=== PATIENT | male | born 1950 | race Caucasian/White ===

== ENCOUNTER 2020-03-09 22:13 | Observation (INO) | payer MEDICARE, BC ==
--- NOTE | 2020-03-09 22:53 | EDM.PDOC ---
ED HPI GENERAL MEDICAL PROBLEM - General Chief Complaint: General Stated Complaint: [facility] Time Seen by Provider: 03/09/20 22:23 Source of Information: Reports: Patient History Limitations: Reports: No Limitations - History of Present Illness INITIAL COMMENTS - FREE TEXT/NARRATIVE: Mr. Stewart is a pleasant 62-year-old gentleman with a past medical history significant for morbid obesity, CHF and chronic bilateral lower extremity venous insufficiency, who is now brought to the ED by EMS for left flank pain and bilateral lower extremity pruritus. He states that he has had both of these symptoms for the past few weeks. He states that he was admitted to the [facility] this past 03/05/2020, and discharged home earlier today. He states that while there, a Doppler ultrasound of his left lower extremity was performed, along with a CT scan of his chest and abdomen, and that no abnormalities were found. He states that he was discharged home with a prescription for a single antibiotic, whose name he does not recall, along with a steroid cream that he is supposed to apply to his legs. He states that no pain medications were prescribed. The patient states that he has a chronic dyspnea on exertion and orthopnea. Other than the symptoms, however, the patient denies recent fever, chills, sore throat, ear pain, nasal or sinus congestion, cough, dyspnea at rest, chest pain , palpitations, nausea, vomiting, constipation, diarrhea, abdominal pain, urinary symptoms, recent weight gain or weight loss, recent bloody bowel movements or black bowel movements, recent joint aches, headaches, or rashes. Here in the ED, the patient's initial BP is found to be elevated at 157/55, otherwise, he is hemodynamically stable, afebrile, saturating at 90% on room air. I explained to the patient that I will review the paperwork from the [facility], to see if they omitted any pertinent tests, but that I do not think it would be bray to simply repeat tests here that had just been done. The patient agreed. Paperwork from [facility] is coming across the fax machine at this time. I will review it, then determine what tests, if any, are necessary tonight. Reviewing the patient's chart from the [facility], I see that the patient initially presented with progressive dyspnea and swelling in his lower feet over the previous 3 weeks. He had also noticed redness to his left lower extremity since that day. He acknowledged weight gain, and that his shoes had become too tight. He acknowledged that he ate a high salt intake and drank up to 1 gallon of water per day. An ECG demonstrated a normal sinus rhythm with a right bundle branch block, but no acute changes. His BNP and portable chest x-ray were normal/unremarkable. A d-dimer was elevated, but a subsequent CT angiogram of his chest was negative for PE, and a Doppler ultrasound of his left lower extremity was negative for DVT. A CT of his abdomen and pelvis with contrast was performed for reasons unclear, finding calcified gallstones, but no acute abnormalities. The patient was thought to have cellulitis of his left leg, treated with cefazolin while in the hospital, with significant improvement. He was prescribed cephalexin 750 mg po BID x 7 days at discharge. He was also prescribed hydrocortisone, 1 application topically BID. There is also a note that the patient was found to be chronically hypoxemic, and that home oxygen, 2L continuously, would be arranged for. The patient's PCP is Dr. Magdiel White, in [place]. Left Flank Pain Score (Numeric/FACES): 5 - Related Data Allergies Allergy/AdvReac Type Severity Reaction Status Date / Time codeine Allergy Severe Nausea Verified 03/09/20 22:25 Home Meds: Home Meds Aspirin [Lo-Dose Aspirin EC] 81 mg PO DAILY 03/09/20 [History] Calcium Carbonate [Calcium] 1,000 mg PO DAILY 03/09/20 [History] Cholecalciferol (Vitamin D3) [Vitamin D3] 1 tab PO DAILY 03/09/20 [History] Furosemide 20 mg PO DAILY 03/09/20 [History] Magnesium Oxide [Magnesium] 400 mg PO DAILY 03/09/20 [History] Potassium Gluconate [Potassium] 99 mg PO DAILY 03/09/20 [History] Zinc 15 mg PO DAILY 03/09/20 [History] atorvaSTATin [Lipitor] 20 mg PO DAILY 03/09/20 [History] lisinopriL [Lisinopril] 2.5 mg PO DAILY 03/09/20 [History] Past Medical History HEENT History: Reports: Impaired Vision Cardiovascular History: Reports: Heart Failure (right), High Cholesterol, Hypertension Gastrointestinal History: Reports: GERD (untreated) Musculoskeletal History: Reports: Arthritis Psychiatric History: Reports: Anxiety (untreated), Depression (untreated) Endocrine/Metabolic History: Reports: Obesity/BMI 30+, Other (See Below) ( Prediabetes) - Past Surgical History HEENT Surgical History: Reports: Eye Surgery (Right eye laser + surgery), Oral Surgery (wisdom teeth extraction) Musculoskeletal Surgical History: Reports: Arthroscopic Knee (right, x 2), Hip Replacement (right), Knee Replacement Social & Family History - Tobacco Use Smoking Status *Q: Former Smoker Years of Tobacco use: 37 Packs/Tins Daily: 3 Month/Year Tobacco Last Used: Quit 2003 - Caffeine Use Caffeine Use: Reports: None - Alcohol Use Alcohol Use History: Yes Alcohol Use Frequency: Rarely - Recreational Drug Use Recreational Drug Use: No - Living Situation & Occupation Living situation: Reports: Single, Alone Occupation: Retired ED ROS GENERAL - Review of Systems Review Of Systems: Comprehensive ROS is negative, except as noted in HPI. ED EXAM, GENERAL - Physical Exam Exam: See Below Exam Limited By: No Limitations General Appearance: Alert, WD/WN, No Apparent Distress Eye Exam: Bilateral Eye: EOMI, Normal Inspection Ears: Normal External Exam, Hearing Grossly Normal Nose: Normal Inspection Throat/Mouth: Normal Inspection, Normal Lips, Normal Voice, No Airway Compromise Head: Atraumatic, Normocephalic Neck: Normal Inspection, Full Range of Motion Respiratory/Chest: No Respiratory Distress, Lungs Clear, Normal Breath Sounds, No Accessory Muscle Use, Decreased Breath Sounds. No: Crackles, Rhonchi, Wheezing, Stridor, Prolonged Expiration Cardiovascular: Normal Peripheral Pulses, Regular Rate, Rhythm, No Gallop, No JVD, No Murmur, No Rub Peripheral Pulses: 4+: Radial (L), Radial (R) GI/Abdominal: Normal Bowel Sounds, Soft, Non-Tender, No Organomegaly, No Distention, No Abnormal Bruit, No Mass (Male) Exam: Deferred Rectal (Males) Exam: Deferred Back Exam: Normal Inspection, Full Range of Motion. No: CVA Tenderness (L), CVA Tenderness (R) Extremities: Normal Capillary Refill, Other (3-4+ pitting pretibial edema bilaterally, with associated erythema and scabs, consistent with chronic venous stasis) Neurological: Alert, Oriented, Normal Cognition, No Motor/Sensory Deficits Psychiatric: Normal Affect Skin Exam: Warm, Dry, Intact, Normal Color, No Rash Course - Vital Signs Last Recorded V/S: Last Vital Signs Temp 37.1 C 03/09/20 22:19 Pulse 93 03/09/20 22:54 Resp 20 03/09/20 22:54 BP 165/113 H 03/09/20 22:54 Pulse Ox 92 L 03/09/20 22:54 - Re-Assessments/Exams Free Text/Narrative Re-Assessment/Exam: 03/09/20 23:11 As above, the patient appears to have had a thorough evaluation at the [facility], and I am not sure what, from an emergency standpoint, I can offer him, however, I did ask if he would be interested in being placed into observation so that he can be evaluated by the Hospitalist tomorrow. He said that he would. 03/09/20 23:[address] Flores at 23:12. She agreed to place the patient into observation. She asked that I write bridge orders that include Benadryl cream to his legs as needed. 03/09/20 23:46 Notified by Jazlyn SUAZO that the patient urinated about 400 mL, and a urine sample was collected. I do not see that a urinalysis was performed at [facility], therefore I have ordered a urinalysis, along with a post-void bladder scan. 03/10/20 00:19 Notified by Namita SUAZO that the patient's post void bladder scan was only 17 mL. His urinalysis is unremarkable. Departure - Departure Time of Disposition: 23:16 Disposition: Refer to Observation Condition: Good Clinical Impression: Left flank pain, Pruritus - Discharge Information *PRESCRIPTION DRUG MONITORING PROGRAM REVIEWED*: Not Applicable *COPY OF PRESCRIPTION DRUG MONITORING REPORT IN PATIENT ZHANG: Not Applicable Sepsis Event Note (ED) - Evaluation Sepsis Screening Result: No Definite Risk - Focused Exam Vital Signs: Vital Signs Temp Pulse Resp BP Pulse Ox 03/09/20 22:54 93 20 165/113 H 92 L 03/09/20 22:19 37.1 C 18 157/55 H 90 L
[2020-03-10] MEDS ORDERED: diphenhydrAMINE/Zinc Acetate 1% Crm 28.3 GM Tube TOP PRN (01:27)
--- NOTE | 2020-03-10 08:59 | PCM.HP.2 ---
H&P History of Present Illness - General Date of Service: 03/10/20 Admit Problem/Dx: Admission Diagnosis/Problem Admission Diagnosis/Problem Flank pain - History of Present Illness Initial Comments - Free Text/Narative: This is a 70-year-old male with past medical history of heart failure with brought into the emergency department via EMS for worsening abdominal pain. As per patient he was admitted and [facility] from March 05 and discharged on March 09 for worsening lower extremity edema and cellulitis as well as shortness of breath. During that admission patient was found to have acute exacerbation of heart failure due to noncompliance. He was also diagnosed with left leg cellulitis and started on Keflex to complete 7 days. Patient states that he has been having chronic itching that worsening during this recent admission. As per documentation from previous admission patient was admitted for a heart failure exacerbation. Was found to have an elevated d-dimer on admission for which she was worked up for a pulmonary embolus and lower extremity DVT both of which were ruled out. He was found to have nocturnal hypoxia with pulse oximetry that dropped down to the 70s for which he was discharged on oxygen therapy. Abdominal CT with incidental findings of cholelithiasis and left lower pole 6 mm nephrolithiasis without hydronephrosis. After discharge patient went home and started experiencing severe abdominal pain without any specific localization, graded at an 8 out of 10, nonradiating, did not try any medications, no alleviating factors, worsening with movement. Of note he also states he has not had a bowel movement since 03/06. Left Flank Pain Score (Numeric/FACES): 5 - Related Data Allergies/Adverse Reactions: Allergies Allergy/AdvReac Type Severity Reaction Status Date / Time codeine Allergy Severe Nausea Verified 03/10/20 04:55 Home Medications: Home Meds Aspirin [Lo-Dose Aspirin EC] 81 mg PO DAILY 03/09/20 [History] Calcium Carbonate [Calcium] 1,000 mg PO DAILY 03/09/20 [History] Cholecalciferol (Vitamin D3) [Vitamin D3] 1 tab PO DAILY 03/09/20 [History] Furosemide 40 mg PO DAILY 03/09/20 [History] Magnesium Oxide [Magnesium] 400 mg PO DAILY 03/09/20 [History] Potassium Gluconate [Potassium] 99 mg PO DAILY 03/09/20 [History] Zinc 15 mg PO DAILY 03/09/20 [History] atorvaSTATin [Lipitor] 20 mg PO DAILY 03/09/20 [History] lisinopriL [Lisinopril] 2.5 mg PO DAILY 03/09/20 [History] Multivitamin [Multivitamins] 1 cap PO DAILY 03/10/20 [History] Past Medical History HEENT History: Reports: Impaired Vision Cardiovascular History: Reports: Heart Failure (right), High Cholesterol, Hypertension Respiratory History: Reports: SOB Gastrointestinal History: Reports: GERD (untreated) Musculoskeletal History: Reports: Arthritis Psychiatric History: Reports: Anxiety (untreated), Depression (untreated) Endocrine/Metabolic History: Reports: Obesity/BMI 30+, Other (See Below) ( Prediabetes) - Infectious Disease History Infectious Disease History: Reports: Influenza, Measles - Past Surgical History HEENT Surgical History: Reports: Eye Surgery (Right eye laser + surgery), Oral Surgery (wisdom teeth extraction) Musculoskeletal Surgical History: Reports: Arthroscopic Knee (right, x 2), Hip Replacement (right), Knee Replacement Social & Family History - Family History Family Medical History: Noncontributory - Tobacco Use Smoking Status *Q: Former Smoker Years of Tobacco use: 37 Packs/Tins Daily: 3 Used Tobacco, but Quit: No Month/Year Tobacco Last Used: Quit 2003 Second Hand Smoke Exposure: No - Caffeine Use Caffeine Use: Reports: None - Recreational Drug Use Recreational Drug Use: No - Living Situation & Occupation Living situation: Reports: Single, Alone Occupation: Retired H&P Review of Systems - Review of Systems: Review Of Systems: See Below General: Reports: Malaise, Decreased Appetite. Denies: Fever, Chills, Weakness , Fatigue, Night Sweats, Diaphoresis HEENT: Denies: Post Nasal Drip, Sinus Congestion, Sore Throat, Vertigo, Visual Changes Pulmonary: Reports: Shortness of Breath. Denies: Wheezing, Pleuritic Chest Pain , Cough, Sputum, Hemoptysis Cardiovascular: Reports: Edema. Denies: Dyspnea on Exertion, Orthopnea, PND, Lightheadedness, Syncope Gastrointestinal: Reports: Abdominal Pain, Anorexia, Constipation, Decreased Appetite, Distension. Denies: Diarrhea, Flatus, Nausea, Vomiting Genitourinary: Denies: Dysuria, Frequency, Burning, Pain, Urgency, Incontinence Musculoskeletal: Reports: Leg Pain. Denies: Neck Pain, Shoulder Pain, Arm Pain , Back Pain, Hand Pain, Foot Pain, Joint Pain, Joint Swelling, Muscle Pain, Muscle Stiffness Skin: Reports: Pallor, Pruritis, Rash, Erythema, Change in Color, Lesions. Denies: Cyanosis, Jaundice, Mottled, Diaphoresis, Dryness, Bruising Psychiatric: Denies: Confusion, Depression, Mood Lability, Anxiety, Agitation Neurological: Denies: Dizziness, Headache, Numbness, Paresthesia Hematologic/Lymphatic: Denies: Anemia, Easy Bleeding Exam - Exam Exam: See Below - Vital Signs Vital Signs: Last Vital Signs Temp 97.7 F 03/10/20 07:27 Pulse 78 03/10/20 07:27 Resp 20 03/10/20 07:27 BP 108/89 03/10/20 07:27 Pulse Ox 92 L 03/10/20 07:27 Weight: 183.478 kg - Exam Quality Assessment: Supplemental Oxygen, Other (confounded by body habitus) General: Alert, Oriented, Cooperative. No: Mild Distress HEENT: Conjunctiva Clear, EACs Clear, Mucosa Moist & [place] Neck: Supple Lungs: Decreased Breath Sounds. No: Crackles, Rales, Rhonchi, Rub, Stridor, Wheezing Cardiovascular: Regular Rate, Regular Rhythm. No: Systolic Murmur, Diastolic Murmur, Rubs, Gallop/S3, Gallop/S4 Extremities: Pedal Edema, Joint Swelling, Other (erythematous rash with stigmas of scratching on anterior surfaces) Sepsis Event Note - Evaluation Sepsis Screening Result: No Definite Risk - Problem List (1) Generalized abdominal pain SNOMED Code(s): 405192769 ICD Code: R10.84 - GENERALIZED ABDOMINAL PAIN Status: Acute Current Visit : Yes (2) Morbid obesity SNOMED Code(s): 193653521 ICD Code: E66.01 - MORBID (SEVERE) OBESITY DUE TO EXCESS CALORIES Status: Acute Current Visit: Yes (3) Nocturnal hypoxemia SNOMED Code(s): 987685753 ICD Code: G47.34 - IDIO SLEEP RELATED NONOBSTRUCTIVE ALVEOLAR HYPOVENTILATION Status: Acute Current Visit: Yes (4) Cellulitis SNOMED Code(s): 575493456 ICD Code: L03.90 - CELLULITIS, UNSPECIFIED Status: Acute Current Visit: Yes (5) Left nephrolithiasis SNOMED Code(s): 82892153 ICD Code: N20.0 - CALCULUS OF KIDNEY Status: Acute Current Visit: Yes (6) Cholelithiasis without cholecystitis SNOMED Code(s): 949019633 ICD Code: K80.20 - CALCULUS OF GALLBLADDER W/O CHOLECYSTITIS W/O OBSTRUCTION Status: Acute Current Visit: Yes (7) Pruritus SNOMED Code(s): 081686251 ICD Code: L29.9 - PRURITUS, UNSPECIFIED Status: Acute Current Visit: Yes (8) Hypertension SNOMED Code(s): 17815129 ICD Code: I10 - ESSENTIAL (PRIMARY) HYPERTENSION Status: Acute Current Visit: Yes (9) Constipation SNOMED Code(s): 51493711 ICD Code: K59.00 - CONSTIPATION, UNSPECIFIED Status: Acute Current Visit : Yes (10) KIERAN (obstructive sleep apnea) SNOMED Code(s): 43962846 ICD Code: G47.33 - OBSTRUCTIVE SLEEP APNEA (ADULT) (PEDIATRIC) Status: Acute Current Visit: Yes (11) 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 hypertension SNOMED Code(s): 047111142 ICD Code: I27.29 - OTHER SECONDARY PULMONARY HYPERTENSION; I50.810 - RIGHT HEART FAILURE, UNSPECIFIED Status: Acute Current Visit: Yes Problem List Initiated/Reviewed/Updated: Yes Assessment/Plan Comment:: Generalized abdominal pain due to constipation Incidental cholelithiasis and nephrolithiasis No bowel movement in 4 days patient Did describe pain initially more localized on the left flank but upon further interrogation described as generalized Cholelithiasis nephrolithiasis are incidental findings, patient does not have any abdominal pain right now It is unlikely that pain was related to nephrolithiasis since urinalysis has normal signs of red blood cells or blood Patient states that he did have a large bowel movement this morning and pain has resolved completely, and he feels 100% better PLAN -Discharged on bowel regimen -Educate on a high-fiber diet -Educated on alarm symptoms he needs to watch out for as far as cholelithiasis and nephrolithiasis KIERAN (obstructive sleep apnea) 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 hypertension Morbid obesity Nocturnal hypoxemia Diagnosed during recent hospital stay and qualified for oxygen at that time PLAN -Follow-up with primary care physician Cellulitis Started on antibiotic therapy during hospital admission Discharged on Keflex for 7 days PLAN -Confirm length of antibiotics given so patient completes required treatment Pruritus Present prior to recent admission Likely secondary to chronic dermatitis Discussed importance of avoiding scratching with patient PLAN -Benadryl cream PROPHYLAXIS unnecessary as patient will be discharged DISPOSITION: Patient will be discharged with plan as dictated above. - Mortality Measure Prognosis:: Good
--- NOTE | 2020-03-10 10:02 | PCM.DCSUM1 ---
Discharge Summary - Hospital Course HPI Initial Comments: This is a 70-year-old male with past medical history of heart failure with brought into the emergency department via EMS for worsening abdominal pain. As per patient he was admitted and [facility] from March 05 and discharged on March 09 for worsening lower extremity edema and cellulitis as well as shortness of breath. During that admission patient was found to have acute exacerbation of heart failure due to noncompliance. He was also diagnosed with left leg cellulitis and started on Keflex to complete 7 days. Patient states that he has been having chronic itching that worsening during this recent admission. As per documentation from previous admission patient was admitted for a heart failure exacerbation. Was found to have an elevated d-dimer on admission for which she was worked up for a pulmonary embolus and lower extremity DVT both of which were ruled out. He was found to have nocturnal hypoxia with pulse oximetry that dropped down to the 70s for which he was discharged on oxygen therapy. Abdominal CT with incidental findings of cholelithiasis and left lower pole 6 mm nephrolithiasis without hydronephrosis. After discharge patient went home and started experiencing severe abdominal pain without any specific localization, graded at an 8 out of 10, nonradiating, did not try any medications, no alleviating factors, worsening with movement. Of note he also states he has not had a bowel movement since 03/06. Diagnosis: Stroke: No - Discharge Data Discharge Date: 03/10/20 Discharge Disposition: Home, Self-Care 01 Condition: Good - Referral to Home Health Primary Care Physician: Magdiel White MD - Discharge Diagnosis/Problem(s) (1) Generalized abdominal pain SNOMED Code(s): 972095370 ICD Code: R10.84 - GENERALIZED ABDOMINAL PAIN Status: Acute Current Visit : Yes (2) Morbid obesity SNOMED Code(s): 634628094 ICD Code: E66.01 - MORBID (SEVERE) OBESITY DUE TO EXCESS CALORIES Status: Acute Current Visit: Yes (3) Nocturnal hypoxemia SNOMED Code(s): 914634654 ICD Code: G47.34 - IDIO SLEEP RELATED NONOBSTRUCTIVE ALVEOLAR HYPOVENTILATION Status: Acute Current Visit: Yes (4) Cellulitis SNOMED Code(s): 410072988 ICD Code: L03.90 - CELLULITIS, UNSPECIFIED Status: Acute Current Visit: Yes (5) Left nephrolithiasis SNOMED Code(s): 35789246 ICD Code: N20.0 - CALCULUS OF KIDNEY Status: Acute Current Visit: Yes (6) Cholelithiasis without cholecystitis SNOMED Code(s): 488995284 ICD Code: K80.20 - CALCULUS OF GALLBLADDER W/O CHOLECYSTITIS W/O OBSTRUCTION Status: Acute Current Visit: Yes (7) Pruritus SNOMED Code(s): 825511383 ICD Code: L29.9 - PRURITUS, UNSPECIFIED Status: Acute Current Visit: Yes (8) Hypertension SNOMED Code(s): 31561499 ICD Code: I10 - ESSENTIAL (PRIMARY) HYPERTENSION Status: Acute Current Visit: Yes (9) Constipation SNOMED Code(s): 17203431 ICD Code: K59.00 - CONSTIPATION, UNSPECIFIED Status: Acute Current Visit : Yes (10) KIERAN (obstructive sleep apnea) SNOMED Code(s): 96430847 ICD Code: G47.33 - OBSTRUCTIVE SLEEP APNEA (ADULT) (PEDIATRIC) Status: Acute Current Visit: Yes (11) 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 hypertension SNOMED Code(s): 031689225 ICD Code: I27.29 - OTHER SECONDARY PULMONARY HYPERTENSION; I50.810 - RIGHT HEART FAILURE, UNSPECIFIED Status: Acute Current Visit: Yes - Patient Summary/Data Hospital Course: Admitted overnight due to severe abdominal pain - Patient endorses last BM was on 03/06 - Abdominal pain resolved after BM this morning, patient states that pain has resolved completely, and he feels 100% better - Incidental findings on recent CT abdomen are not the causes of current clinical presentation but did educate patient on the symptoms for both cholecystitis and acute nephrolithiasis pain Cellulitis - Patient received 3.5 days of ATB therapy during recent hospital stay - Initially with cefazolin after which he developed and intense pruritic reaction for which he was switched to clindamycin - He will need to complete 2 more days, discharged on 2 days of clindamycin - Patient Instructions Diet: Fluid Restriction Fluid Restriction: 1500 mL - Discharge Plan *PRESCRIPTION DRUG MONITORING PROGRAM REVIEWED*: Not Applicable *COPY OF PRESCRIPTION DRUG MONITORING REPORT IN PATIENT ZHANG: Not Applicable Prescriptions/Med Rec: clindamycin HCL [Clindamycin HCl] 600 mg PO TID #6 capsule diphenhydrAMINE/Zinc Acetate [Benadryl Itch Stopping Crm] 1 gm TOP QID PRN #4 tube PRN Reason: Itching Sennosides/Docusate Sodium [Docusate Sodium-Sennosides Tab] 1 each PO BID #60 tablet Home Medications: Home Meds Aspirin [Lo-Dose Aspirin EC] 81 mg PO DAILY 03/09/20 [History] Calcium Carbonate [Calcium] 1,000 mg PO DAILY 03/09/20 [History] Cholecalciferol (Vitamin D3) [Vitamin D3] 1 tab PO DAILY 03/09/20 [History] Furosemide 40 mg PO DAILY 03/09/20 [History] Magnesium Oxide [Magnesium] 400 mg PO DAILY 03/09/20 [History] Potassium Gluconate [Potassium] 99 mg PO DAILY 03/09/20 [History] Zinc 15 mg PO DAILY 03/09/20 [History] atorvaSTATin [Lipitor] 20 mg PO DAILY 03/09/20 [History] lisinopriL [Lisinopril] 2.5 mg PO DAILY 03/09/20 [History] Multivitamin [Multivitamins] 1 cap PO DAILY 03/10/20 [History] Sennosides/Docusate Sodium [Docusate Sodium-Sennosides Tab] 1 each PO BID #60 tablet 03/10/20 [Rx] clindamycin HCL [Clindamycin HCl] 600 mg PO TID #6 capsule 03/10/20 [Rx] diphenhydrAMINE/Zinc Acetate [Benadryl Itch Stopping Crm] 1 gm TOP QID PRN #4 tube 03/10/20 [Rx] Oxygen Therapy Mode: Nasal Cannula Maintain SpO2% greater than: 88 Forms: ED Department Discharge Referrals: Magdiel White MD [Primary Care Provider] - - Discharge Summary/Plan Comment DC Time >30 min.: Yes - General Info Date of Service: 03/10/20 Subjective Update: Feeling great Tolerating diet No more pain or other complaints Ambulating by self to and from restroom - Patient Data Vitals - Most Recent: Last Vital Signs Temp 97.7 F 03/10/20 07:27 Pulse 78 03/10/20 07:27 Resp 20 03/10/20 07:27 BP 108/89 03/10/20 07:27 Pulse Ox 92 L 03/10/20 07:27 Weight - Most Recent: 183.478 kg - Exam Quality Assessment: Reports: Supplemental Oxygen General: Reports: Alert, Oriented, Cooperative, No Acute Distress HEENT: Reports: Pupils Equal, Pupils Reactive, EOMI, Mucous Membr. Moist/[place] Neck: Reports: Supple Lungs: Reports: Decreased Breath Sounds. Denies: Crackles, Rales, Rhonchi, Rub , Stridor, Wheezing Cardiovascular: Reports: Regular Rate, Regular Rhythm. Denies: Murmurs, Gallops , Rubs GI/Abdominal Exam: Soft, Distended. No: Guarding, Rigid, Rebound, Tender Back Exam: Denies: CVA Tenderness (L), CVA Tenderness (R) Extremities: Pedal Edema. No: Normal Inspection Skin: Reports: Rash Neurological: Reports: No New Focal Deficit Psy/Mental Status: Reports: Alert, Normal Affect, Normal Mood
== END 2020-03-10 13:37 | disposition home or self-care (01) ==
LOC: JD.ED 22:13 → JD.MS 23:35
PROVIDERS: ADMIT Internal Medicine; ATTEND Internal Medicine
DX: R10.84 Generalized abdominal pain (principal); E66.01 Morbid (severe) obesity due to excess calories; L03.90 Cellulitis, unspecified; N20.0 Calculus of kidney; K80.20 Calculus of gallbladder without cholecystitis without obstruction; L29.9 Pruritus, unspecified; K59.00 Constipation, unspecified; G47.33 Obstructive sleep apnea (adult) (pediatric); I11.0 Hypertensive heart disease with heart failure; E78.00 Pure hypercholesterolemia, unspecified; I50.810 Right heart failure, unspecified; I27.20 Pulmonary hypertension, unspecified; Z79.82 Long term (current) use of aspirin; Z79.899 Other long term (current) drug therapy; Z87.891 Personal history of nicotine dependence; Z88.5 Allergy status to narcotic agent; Z68.43 Body mass index [BMI] 50.0-59.9, adult
CPT/HCPCS: 81001; 99219; 99284; 99285; G0378